=== PATIENT | female | born 1940 | race Caucasian/White ===

== ENCOUNTER 2017-01-17 19:23 | Inpatient (IN) | payer MEDICARE, MEDICAID ==
[~2017-01-17] VITALS: Ht 162.6 cm; Wt 81.6 kg
[~2017-01-17 19:23] MED LIST: ACET-2178 PO; AMLO5TAB88 PO; ASPI-1159 PO; ASPI1CPM6; ATOR10TA69 PO; FURO-152 PO; IMMODIUM; INSU3INS6 SQ; LEVO88TA2 PO; LORA0.5T2 PO
[2017-01-17 20:04] LABS: BASOPHILS % 0.5 % (0.0-2.0); EOSINOPHILS % 9.6 % (0.0-5.0); HEMATOCRIT. 31.1 % (36.0-48.0); HEMOGLOBIN. 10.4 g/dL (12.0-16.0); LYMPHOCYTES % 14.8 % (20.0-50.0); MEAN CORPUSCULAR HEMOGLOBIN 29.3 pg (28.0-32.0); MEAN CORPUSCULAR VOLUME 87.2 fL (81.0-99.0); MEAN PLATELET VOLUME 8.2 fl (7.4-10.4); MONOCYTES % 9.9 % (2.0-8.0); NEUTROPHILS % 65.2 % (40.0-76.0); PLATELET 386 x1000/uL (130-400); RED BLOOD CELL COUNT 3.57 mill/uL (4.2-5.4); RED CELL DISTRIBUTION WIDTH 15.9 % (11.6-14.6)
[2017-01-17 20:09] LABS: PROTHROMBIN TIME 10.7 sec
[2017-01-17 20:11] LABS: CHLORIDE 112 mEq/L (98-107)
[2017-01-17 20:21] LABS: CARBON DIOXIDE 22 mEq/L (21-32)
[2017-01-17 20:47] LABS: CLARITY URINE TURBID (CLEAR); COLOR URINE YELLOW (YELLOW); GLUCOSE URINE NEGATIVE (NEGATIVE); KETONES URINE NEGATIVE (NEGATIVE); LEUKOCYTE ESTERASE URINE 3+ (NEGATIVE); NITRITE URINE NEGATIVE (NEGATIVE); OCCULT BLOOD URINE 1+ (NEGATIVE); PROTEIN URINE 3+ (NEGATIVE); SPECIFIC GRAVITY URINE 1.013 (1.005-1.030); UROBILINOGEN URINE 0.2 E.U./dL (0.2-1.0)
[2017-01-17] MEDS ORDERED: CEFTRIAXONE 1 G PREMIX 50 ML IV ONE (21:15)
[2017-01-17 23:15] VITALS: BP 122/63
[2017-01-18] MEDS ORDERED: DOCUSATE SODIUM 100MG CAPSULE PO PRN (00:30)
[2017-01-18] MEDS ORDERED: IPRATROPIUM/ALBUTEROL 0.5-3(2.5)MG/3ML NEB INH PRN (00:30)
[2017-01-18] MEDS ORDERED: ACETAMINOPHEN 325MG TABLET PO PRN (00:30)
[2017-01-18] MEDS ORDERED: ONDANSETRON HCL 4MG/2ML VIAL IV PRN (00:30)
[2017-01-18] MEDS ORDERED: FURO40TA5 PO (01:37)
[2017-01-18] MEDS ORDERED: ATOR20TA65 PO (01:37)
[2017-01-18] MEDS ORDERED: FERR-63 PO (01:37)
[2017-01-18] MEDS ORDERED: DIVA250T PO (01:37)
[2017-01-18] MEDS ORDERED: PRED10TA PO (01:37)
[2017-01-18] MEDS ORDERED: CLOP75TA33 PO (01:37)
[2017-01-18] MEDS ORDERED: CARV3.1242 PO (01:37)
[2017-01-18] MEDS ORDERED: LORA1TAB PO (01:37)
[2017-01-18] MEDS ORDERED: CLOT15CR5 TP (01:37)
[2017-01-18] MEDS ORDERED: INSU100I19 SQ (01:37)
[2017-01-18] MEDS ORDERED: DEXTROSE 50% WATER 50ML SYRINGE IV PRN (02:00)
[2017-01-18] MEDS: LEVOFLOXACIN 500MG PREMIX 100 ML IV SCH (02:19)
[2017-01-18 04:00] VITALS: BP 121/85
[2017-01-18] MEDS: BLOOD SUGAR DIAGNOSTIC STRIP TEST SCH ×4 (06:25→20:46)
[2017-01-18 07:33] LABS: PHOSPHORUS 3.9 mg/dL (2.5-4.9)
[2017-01-18] MEDS: LEVOTHYROXINE SODIUM 88MCG TABLET PO SCH (07:40)
[2017-01-18] MEDS: OMEPRAZOLE 20MG CAPSULE EXTENDED RELEASE PO SCH ×2 (07:40→17:03)
[2017-01-18 07:41] LABS: BASOPHILS % 0.6 % (0.0-2.0); EOSINOPHILS % 8.9 % (0.0-5.0); HEMOGLOBIN. 10.3 g/dL (12.0-16.0); LYMPHOCYTES % 12.4 % (20.0-50.0); MEAN CORPUSCULAR HEMOGLOBIN 28.6 pg (28.0-32.0); MEAN PLATELET VOLUME 8.9 fl (7.4-10.4); MONOCYTES % 10.8 % (2.0-8.0); NEUTROPHILS % 67.3 % (40.0-76.0); PLATELET 369 x1000/uL (130-400); RED CELL DISTRIBUTION WIDTH 15.6 % (11.6-14.6)
[2017-01-18] MEDS: INSULIN LISPRO 100 UNITS/ML SUBCUT SCH ×4 (07:52→20:46)
[2017-01-18 08:00] VITALS: BP 110/87
[2017-01-18] MEDS: AMLODIPINE 5MG TABLET PO SCH (09:00)
[2017-01-18] MEDS: ASPIRIN 81MG EC TABLET PO SCH (09:00)
[2017-01-18] MEDS: INSULIN DETEMIR UD 100 UNITS/ML SYR SUBCUT SCH (09:00)
[2017-01-18] MEDS: CARVEDILOL 3.125 MG TABLET PO SCH ×2 (09:00→20:45)
[2017-01-18] MEDS: DIVALPROEX SODIUM 250MG DR TABLET PO SCH (09:00)
[2017-01-18] MEDS: CLOPIDOGREL 75MG TABLET PO SCH ×2 (09:00→17:03)
[2017-01-18] MEDS: LORAZEPAM 1MG TABLET PO SCH ×2 (09:00→17:03)
[2017-01-18] MEDS: PREDNISONE 10MG TABLET PO SCH ×2 (09:00→17:03)
[2017-01-18] MEDS: FERROUS SULFATE 325MG TABLET PO SCH ×2 (09:00→17:04)
[2017-01-18] MEDS: FUROSEMIDE 40MG TABLET PO SCH ×2 (09:00→17:02)
[2017-01-18 16:00] VITALS: BP 124/81
[2017-01-18 20:10] VITALS: BP 140/70
[2017-01-18] MEDS: ATORVASTATIN CALCIUM 20MG TABLET PO SCH (20:46)
[2017-01-18] MEDS ORDERED: ZOLPIDEM TARTRATE 5MG TABLET PO PRN (21:00)
[2017-01-19] VITALS: BP 135/64
[2017-01-19 04:00] VITALS: BP 111/65
[2017-01-19] MEDS: BLOOD SUGAR DIAGNOSTIC STRIP TEST SCH ×4 (06:02→21:13)
[2017-01-19 06:48] LABS: BASOPHILS % 0.6 % (0.0-2.0); EOSINOPHILS % 11.1 % (0.0-5.0); HEMATOCRIT. 30.5 % (36.0-48.0); HEMOGLOBIN. 10.3 g/dL (12.0-16.0); LYMPHOCYTES % 14.6 % (20.0-50.0); MEAN CORPUSCULAR HEMOGLOBIN 28.9 pg (28.0-32.0); MEAN CORPUSCULAR VOLUME 86.2 fL (81.0-99.0); MEAN PLATELET VOLUME 8.3 fl (7.4-10.4); MONOCYTES % 10.9 % (2.0-8.0); NEUTROPHILS % 62.8 % (40.0-76.0); PLATELET 394 x1000/uL (130-400); RED BLOOD CELL COUNT 3.54 mill/uL (4.2-5.4)
[2017-01-19 08:00] VITALS: BP 129/66
[2017-01-19] MEDS: INSULIN LISPRO 100 UNITS/ML SUBCUT SCH ×4 (08:10→21:29)
[2017-01-19] MEDS: INSULIN DETEMIR UD 100 UNITS/ML SYR SUBCUT SCH (09:00)
[2017-01-19] MEDS: CARVEDILOL 3.125 MG TABLET PO SCH ×2 (09:45→21:12)
[2017-01-19] MEDS: OMEPRAZOLE 20MG CAPSULE EXTENDED RELEASE PO SCH (09:45)
[2017-01-19] MEDS: CLOPIDOGREL 75MG TABLET PO SCH (09:46)
[2017-01-19] MEDS: LEVOTHYROXINE SODIUM 88MCG TABLET PO SCH (09:46)
[2017-01-19] MEDS: ASPIRIN 81MG EC TABLET PO SCH (09:46)
[2017-01-19] MEDS: FERROUS SULFATE 325MG TABLET PO SCH (09:46)
[2017-01-19] MEDS: AMLODIPINE 5MG TABLET PO SCH (09:46)
[2017-01-19] MEDS: DIVALPROEX SODIUM 250MG DR TABLET PO SCH (09:46)
[2017-01-19] MEDS: PREDNISONE 10MG TABLET PO SCH (09:48)
[2017-01-19 12:00] VITALS: BP 109/64
[2017-01-19 16:00] VITALS: BP 113/75
[2017-01-19 20:00] VITALS: BP 125/65
[2017-01-19] MEDS: ATORVASTATIN CALCIUM 20MG TABLET PO SCH (21:12)
[2017-01-20] VITALS: BP 115/46
[2017-01-20] MEDS: LEVOFLOXACIN 500MG PREMIX 100 ML IV SCH (02:35)
[2017-01-20] MEDS: BLOOD SUGAR DIAGNOSTIC STRIP TEST SCH ×4 (07:59→21:52)
[2017-01-20 08:00] VITALS: BP 133/69
[2017-01-20] MEDS: INSULIN LISPRO 100 UNITS/ML SUBCUT SCH ×4 (08:00→21:55)
[2017-01-20] MEDS: LEVOTHYROXINE SODIUM 88MCG TABLET PO SCH (08:32)
[2017-01-20] MEDS: CLOPIDOGREL 75MG TABLET PO SCH (08:33)
[2017-01-20] MEDS: DIVALPROEX SODIUM 250MG DR TABLET PO SCH (08:33)
[2017-01-20] MEDS: FAMOTIDINE 20MG TABLET PO SCH (08:34)
[2017-01-20] MEDS: ASPIRIN 81MG EC TABLET PO SCH (08:34)
[2017-01-20] MEDS: LORAZEPAM 1MG TABLET PO SCH (08:34)
[2017-01-20] MEDS: CARVEDILOL 3.125 MG TABLET PO SCH ×2 (08:35→21:00)
[2017-01-20] MEDS: FERROUS SULFATE 325MG TABLET PO SCH (08:35)
[2017-01-20] MEDS: PREDNISONE 10MG TABLET PO SCH (08:35)
[2017-01-20] MEDS: AMLODIPINE 5MG TABLET PO SCH (08:36)
[2017-01-20] MEDS: INSULIN DETEMIR UD 100 UNITS/ML SYR SUBCUT SCH (10:55)
[2017-01-20 12:00] VITALS: BP 106/55
[2017-01-20 12:49] LABS: HEMATOCRIT 29.3 % (36.0-48.0); HEMOGLOBIN 9.9 g/dL (12.0-16.0); MEAN CORPUSCULAR HEMOGLOBIN 29.1 pg (28.0-32.0); MEAN CORPUSCULAR VOLUME 85.6 fL (81.0-99.0); PLATELET 383 x1000/uL (130-400); RED BLOOD CELL COUNT 3.42 mill/uL (4.2-5.4); RED CELL DISTRIBUTION WIDTH 15.9 % (11.6-14.6)
[2017-01-20 16:00] VITALS: BP 99/49
[2017-01-20 20:00] VITALS: BP 106/56
[2017-01-20] MEDS: ACYCLOVIR 400 MG TABLET PO SCH (21:51)
[2017-01-20] MEDS: ATORVASTATIN CALCIUM 20MG TABLET PO SCH (21:51)
[2017-01-20] MEDS: CEPHALEXIN 500MG CAPSULE PO SCH (21:51)
[2017-01-21] VITALS: BP 103/59
[2017-01-21 04:00] VITALS: BP 108/57
[2017-01-21] MEDS: BLOOD SUGAR DIAGNOSTIC STRIP TEST SCH ×4 (06:31→21:10)
[2017-01-21] MEDS: LEVOTHYROXINE SODIUM 88MCG TABLET PO SCH (06:32)
[2017-01-21 06:56] LABS: BASOPHILS % 0.5 % (0.0-2.0); EOSINOPHILS % 5.2 % (0.0-5.0); HEMATOCRIT. 28.9 % (36.0-48.0); HEMOGLOBIN. 9.4 g/dL (12.0-16.0); LYMPHOCYTES % 14.9 % (20.0-50.0); MEAN CORPUSCULAR VOLUME 89.1 fL (81.0-99.0); MEAN PLATELET VOLUME 8.2 fl (7.4-10.4); MONOCYTES % 10.4 % (2.0-8.0); PLATELET 310 x1000/uL (130-400); RED BLOOD CELL COUNT 3.25 mill/uL (4.2-5.4); RED CELL DISTRIBUTION WIDTH 15.8 % (11.6-14.6)
[2017-01-21 08:00] VITALS: BP 122/70
[2017-01-21] MEDS: AMLODIPINE 5MG TABLET PO SCH (09:00)
[2017-01-21] MEDS: DIVALPROEX SODIUM 250MG DR TABLET PO SCH (09:07)
[2017-01-21] MEDS: CEPHALEXIN 500MG CAPSULE PO SCH ×2 (09:07→20:21)
[2017-01-21] MEDS: LORAZEPAM 1MG TABLET PO SCH (09:07)
[2017-01-21] MEDS: CLOPIDOGREL 75MG TABLET PO SCH (09:09)
[2017-01-21] MEDS: FERROUS SULFATE 325MG TABLET PO SCH (09:09)
[2017-01-21] MEDS: CARVEDILOL 3.125 MG TABLET PO SCH ×2 (09:09→20:21)
[2017-01-21] MEDS: ASPIRIN 81MG EC TABLET PO SCH (09:09)
[2017-01-21] MEDS: PREDNISONE 10MG TABLET PO SCH (09:09)
[2017-01-21] MEDS: FAMOTIDINE 20MG TABLET PO SCH (09:20)
[2017-01-21] MEDS: INSULIN DETEMIR UD 100 UNITS/ML SYR SUBCUT SCH (09:22)
[2017-01-21] MEDS: INSULIN LISPRO 100 UNITS/ML SUBCUT SCH ×4 (09:22→21:11)
[2017-01-21] MEDS: ACYCLOVIR 400 MG TABLET PO SCH ×2 (11:28→20:21)
[2017-01-21 12:00] VITALS: BP 113/83
[2017-01-21 13:50] LABS: TOTAL IRON BINDING CAPACITY 172 ug/dL (250-450)
[2017-01-21 15:17] LABS: BG BASE EXCESS -3.7 mmol/L (-2.0-2.0); BG CARBOXYHEMOGLOBIN 0.3 % (0.5-1.5); BG DEOXYHEMOGLOBIN 7.7 % (0.0-5.0); BG FRACTION INSPIRED OXYGEN 21; BG METHEMOGLOBIN 0.2 % (0.0-1.5); BG OXYGEN SATURATION 92.3 % (92.0-98.5); BG OXYHEMOGLOBIN 91.8 % (94.0-97.0); BG PCO2 36.7 mmHg (35.0-45.0); BG PH 7.375 (7.350-7.450); BG PO2 67.2 mmHg (75.0-100.0); BG SAMPLE SITE RIGHT BRACHIAL; BG TOTAL HEMOGLOBIN 10.4 g/dL (12.0-18.0); BG VENT MODE ROOM AIR
[2017-01-21 16:00] VITALS: BP 115/68
[2017-01-21 20:09] VITALS: BP 159/66
[2017-01-21] MEDS: ATORVASTATIN CALCIUM 20MG TABLET PO SCH (20:21)
[2017-01-22] VITALS (7 sets, daily range): BP systolic 115–143; BP diastolic 59–81
[2017-01-22 05:46] LABS: BASOPHILS % 0.6 % (0.0-2.0); EOSINOPHILS % 4.1 % (0.0-5.0); HEMOGLOBIN. 9.2 g/dL (12.0-16.0); LYMPHOCYTES % 13.4 % (20.0-50.0); MEAN CORPUSCULAR VOLUME 85.6 fL (81.0-99.0); MEAN PLATELET VOLUME 8.2 fl (7.4-10.4); MONOCYTES % 8.2 % (2.0-8.0); NEUTROPHILS % 73.7 % (40.0-76.0); PLATELET 364 x1000/uL (130-400); RED BLOOD CELL COUNT 3.16 mill/uL (4.2-5.4); RED CELL DISTRIBUTION WIDTH 15.4 % (11.6-14.6)
[2017-01-22] MEDS: BLOOD SUGAR DIAGNOSTIC STRIP TEST SCH ×4 (06:05→21:07)
[2017-01-22] MEDS: INSULIN LISPRO 100 UNITS/ML SUBCUT SCH ×4 (07:35→21:11)
[2017-01-22] MEDS ORDERED: LEVOFLOXACIN 500MG TABLET PO SCH (09:00)
[2017-01-22] MEDS: FERROUS SULFATE 325MG TABLET PO SCH (09:06)
[2017-01-22] MEDS: FAMOTIDINE 20MG TABLET PO SCH (09:06)
[2017-01-22] MEDS: AMLODIPINE 5MG TABLET PO SCH (09:06)
[2017-01-22] MEDS: CEPHALEXIN 500MG CAPSULE PO SCH ×2 (09:06→20:37)
[2017-01-22] MEDS: PREDNISONE 10MG TABLET PO SCH (09:06)
[2017-01-22] MEDS: DIVALPROEX SODIUM 250MG DR TABLET PO SCH (09:06)
[2017-01-22] MEDS: LEVOTHYROXINE SODIUM 88MCG TABLET PO SCH (09:06)
[2017-01-22] MEDS: ASPIRIN 81MG EC TABLET PO SCH (09:06)
[2017-01-22] MEDS: CLOPIDOGREL 75MG TABLET PO SCH (09:06)
[2017-01-22] MEDS: ACYCLOVIR 400 MG TABLET PO SCH ×2 (09:06→20:36)
[2017-01-22] MEDS: CARVEDILOL 3.125 MG TABLET PO SCH ×2 (09:07→20:37)
[2017-01-22] MEDS: LORAZEPAM 1MG TABLET PO SCH (09:07)
[2017-01-22] MEDS: INSULIN DETEMIR UD 100 UNITS/ML SYR SUBCUT SCH (11:40)
[2017-01-22] MEDS: ATORVASTATIN CALCIUM 20MG TABLET PO SCH (20:37)
== END 2017-01-22 21:35 | disposition home or self-care (01) | DRG 871 ==
LOC: ER 19:27 → 7WST 22:09 → ENRESERV 22:31
PROVIDERS: ADMIT Family Medicine Adult Medicine; ATTEND Family Medicine Adult Medicine
DX: A41.9 Sepsis, unspecified organism (principal); E43 Unspecified severe protein-calorie malnutrition; J96.01 Acute respiratory failure with hypoxia; I13.0 Hypertensive heart and chronic kidney disease with heart failure and stage 1 through stage 4 chronic kidney disease, or unspecified chronic kidney disease; N17.9 Acute kidney failure, unspecified; N39.0 Urinary tract infection, site not specified; N18.4 Chronic kidney disease, stage 4 (severe); I50.20 Unspecified systolic (congestive) heart failure; E87.0 Hyperosmolality and hypernatremia; I42.0 Dilated cardiomyopathy; J84.9 Interstitial pulmonary disease, unspecified; J44.1 Chronic obstructive pulmonary disease with (acute) exacerbation; E11.22 Type 2 diabetes mellitus with diabetic chronic kidney disease; D63.8 Anemia in other chronic diseases classified elsewhere; F03.90 Unspecified dementia, unspecified severity, without behavioral disturbance, psychotic disturbance, mood disturbance, and anxiety; B96.89 Other specified bacterial agents as the cause of diseases classified elsewhere; E87.5 Hyperkalemia; B02.9 Zoster without complications; B96.20 Unspecified Escherichia coli [E. coli] as the cause of diseases classified elsewhere; E03.9 Hypothyroidism, unspecified; F20.9 Schizophrenia, unspecified; F31.9 Bipolar disorder, unspecified; L53.9 Erythematous condition, unspecified; T50.2X5A Adverse effect of carbonic-anhydrase inhibitors, benzothiadiazides and other diuretics, initial encounter; Z79.4 Long term (current) use of insulin; Z87.891 Personal history of nicotine dependence; Y92.89 Other specified places as the place of occurrence of the external cause; Z68.30 Body mass index [BMI] 30.0-30.9, adult
CPT/HCPCS: 36415; 36600; 71010; 76770; 80048; 80053; 81001; 82375; 82570; 82805; 82962; 83036; 83540; 83550; 83735; 83880; 84100; 84156; 84443; 85025; 85027; 85379; 85610; 87077; 87086; 87186; 93970; 96365; 99285; A6261; C1893; J0696; J1815; J1956; J7040; J7512